=== PATIENT | male | born 1985 | race Caucasian/White ===

== ENCOUNTER 2022-04-26 11:41 | Emergency (ER) | payer OTHER, SELFPAY ==
[2022-04-26 11:51] VITALS: BP 122/72; PULSE 92; RESP 15; TEMP 39.2; O2SAT 96; BMI 28.8
[2022-04-26] MEDS: ACETAMINOPHEN 325 MG TABLET 975 MG PO (11:55)
[2022-04-26 12:24] LABS: COVID19 -Nasal RAPID POSITIVE (Negative)
--- NOTE | 2022-04-26 13:36 | ED.URI ---
HPI - URI/Sore Throat <ДМИТРИЙ Dumont Last Filed: 04/26/22 19:38> General Chief Complaint: Upper Respiratory Symptoms Stated Complaint: Cough, Sore throat, body aches, fever Time Seen by Provider: 04/26/22 13:30 Source: patient Mode of arrival: Ambulatory History of Present Illness HPI Narrative: Patient is a 36-year-old male who presents to the emergency department for an evaluation of cough, sore throat, fever, and body aches. Patient explains he has been experiencing the symptoms for the past 2 days. He denies any known recent sick contacts. Does not report any chronic medical conditions. He denies chills, shortness of breath, chest pain, nausea, vomiting, diarrhea, constipation, abdominal pain, dysuria, hematuria, earache, rash, or any other concerning symptoms. No further concerns were voiced at this time. Related Data Allergies Allergy/AdvReac Type Severity Reaction Status Date / Time No Known Drug Allergies Allergy Verified 04/26/22 11:51 Review of Systems <ДМИТРИЙ Dumont Last Filed: 04/26/22 19:38> Constitutional Constitutional: Reports body ache(s), Denies chills, Denies fatigue, Reports fever(s), Denies frequent falls, Denies lethargy and Denies weakness ENT Ears, Nose, Mouth, and Throat: Denies change in voice, Denies dizziness, Denies neck pain, Reports sore throat and Denies throat swelling Cardiovascular Cardiovascular: Denies chest pain, Denies irregular heart rhythm, Denies lightheadedness, Denies palpitations, Denies dyspnea, Denies dyspnea on exertion and Denies orthopnea Respiratory Respiratory: Denies chest congestion, Reports cough, Denies dyspnea and Denies dyspnea on exertion Gastrointestinal Gastrointestinal: Denies abdominal pain, Denies change in bowel habits, Denies diarrhea, Denies nausea and Denies vomiting Genitourinary Genitourinary: Denies hematuria, Denies flank pain, Denies urinary incontinence and Denies urinary urgency Musculoskeletal Musculoskeletal: Denies neck pain Neurologic Neurologic: Denies dizziness, Denies frequent falls and Denies weakness Endocrine Endocrine: Denies fatigue and Denies palpitations Allergic/Immunologic Allergic/Immunologic: Denies throat swelling Patient History <ДМИТРИЙ Dumont Last Filed: 04/26/22 19:38> Social History Smoking Status: Unknown if ever smoked Smoking Status: Unknown if ever smoked alcohol intake frequency: holidays/special occasions only Substance Use Type: does not use Exam <Camden Eli PA-C - Last Filed: 04/26/22 19:38> Narrative Exam Narrative: GENERAL: 36 year old patient appears stated age. Well-developed patient, in no acute distress. HEAD: Atraumatic. Normocephalic. EYES: Pupils equal round and reactive. Extraocular motions intact. No scleral icterus. No injection or drainage. ENT: Nose without bleeding, purulent drainage. Throat without erythema, tonsillar hypertrophy or exudate. Airway patent. NECK: Trachea midline. Non tender CARDIOVASCULAR: Regular rate and rhythm without murmurs, gallops, or rubs. RESPIRATORY: Clear to auscultation. Breath sounds equal bilaterally. No wheezes, rales, or rhonchi. Occasional cough on exam. GASTROINTESTINAL: Abdomen soft, non-tender, nondistended. EXTREMITIES: No edema or joint tenderness. BACK: Nontender without deformity or crepitance. No flank tenderness. NEURO: AOx3. SKIN: No rash or erythema of visible areas Initial Vital Signs Initial Vital Signs: Vital Signs Temperature 102.6 F H 04/26/22 11:51 Pulse Rate 92 H 04/26/22 11:51 Respiratory Rate 15 04/26/22 11:51 Blood Pressure 122/72 04/26/22 11:51 Pulse Oximetry 96 04/26/22 11:51 Oxygen Delivery Method 04/26/22 11:51 <Rosa Maria Carlos DO - Last Filed: 04/27/22 07:25> Initial Vital Signs Initial Vital Signs: Vital Signs Temperature 102.6 F H 04/26/22 11:51 Pulse Rate 92 H 04/26/22 11:51 Respiratory Rate 15 04/26/22 11:51 Blood Pressure 122/72 04/26/22 11:51 Pulse Oximetry 96 04/26/22 11:51 Oxygen Delivery Method 04/26/22 11:51 Course <Camden Eli PA-C - Last Filed: 04/26/22 19:38> Course Course Narrative: 975 mg of Tylenol administered. COVID swab and rapid strep ordered. COVID returned positive. Orders Ordered: Discontinued Medications Acetaminophen (Acetaminophen 325 Mg Tablet) 975 mg PO NOW ONE Stop: 04/26/22 11:54 Last Admin: 04/26/22 11:55 Dose: 975 mg Documented By: DEREK Vital Signs Vital signs: Vital Signs - 8 hr 04/26/22 11:51 04/26/22 13:39 04/26/22 13:39 Temperature 102.6 F H 99.7 F H 99.7 F H Pulse Rate 92 H 76 Respiratory Rate 15 18 Blood Pressure 122/72 106/57 L Pulse Oximetry 96 96 Oxygen Delivery Method Room Air Room Air <Rosa Maria Carlos DO - Last Filed: 04/27/22 07:25> Orders Ordered: Discontinued Medications Acetaminophen (Acetaminophen 325 Mg Tablet) 975 mg PO NOW ONE Stop: 04/26/22 11:54 Last Admin: 04/26/22 11:55 Dose: 975 mg Documented By: DEREK Vital Signs Vital signs: Vital Signs - 8 hr 04/26/22 11:51 04/26/22 13:39 04/26/22 13:39 Temperature 102.6 F H 99.7 F H 99.7 F H Pulse Rate 92 H 76 Respiratory Rate 15 18 Blood Pressure 122/72 106/57 L Pulse Oximetry 96 96 Oxygen Delivery Method Room Air Room Air MDM - URI/Sore Throat <Camden Eli PA-C - Last Filed: 04/26/22 19:38> Lab Data Labs: Lab Results 04/26/22 Range/Units 11:51 SARS-CoV-2 (PCR) Positive H (Negative) Point of Care Testing Rapid Strep A Negative MDM Narrative Medical decision making narrative: Differential diagnosis to consider but not limited to viral upper respiratory infection versus COVID-19 versus influenza. COVID swab obtained in the emergency department today did result positive for COVID-19. I recommended that the patient continue using [id number] remedies to help alleviate his symptoms. Patient expresses understanding and agrees to plan. Strict return precautions were discussed prior to discharge. <Rosa Maria Carlos DO - Last Filed: 04/27/22 07:25> Lab Data Labs: Lab Results 04/26/22 Range/Units 11:51 SARS-CoV-2 (PCR) Positive H (Negative) Point of Care Testing Rapid Strep A Negative Discharge Plan Departure Patient Disposition: Home Clinical Impression: COVID-19, Upper respiratory infection Instructions: DI for COVID-19 (Suspected or Confirmed ) Activity Restrictions/Additional Instructions: *You have been diagnosed with COVID-19, upper respiratory infection *What to do: *Please continue to take your regular medications as directed. [ ] New medication prescriptions sent to your pharmacy: [ ] [ ] New medication written as a paper prescription [X] No new medications given You were evaluated in the emergency department today for cough, sore throat, fever, body aches. COVID swab obtained in the emergency department today did result positive for COVID-19. Please ensure that your using [id number]-[id number] remedies to help alleviate her symptoms. Tylenol and ibuprofen can be used for fever management, Robitussin for cough, and warm saltwater gargles to help alleviate throat pain. Ensure that your staying well hydrated throughout the day, Pedialyte and watered down Gatorade or great ways to keep electrolyte levels up. Please continue to quarantine for the next 3 days and ensure that your wearing a mask if you are out in public for the 5 days after quarantine period ends. Please follow-up with primary care for further evaluation and management. Please do not hesitate to return to the emergency department if you experience worsening fever, difficulty breathing, throat swelling, or any other concerning symptoms. *Please follow up with your primary care provider in 2-3 days, call for an appointment. Let them know you were seen in the Emergency Department and that we ask that you be seen in follow up. We will electronically transmit a record of today's note if your PCP is in our system *If you do not have a primary care provider please contact the [facility] Resource line at [phone]. They will ask some questions about your medical history and help get you set up with a doctor in the community. *Return to Emergency Department if you should have any new, worsening or concerning symptoms, such as fever greater than 101 F, shaking chills, worsening pain, persistent vomiting or other bothersome symptoms. Visit Report Forms: Patient Portal/API <Rosa Maria Carlos DO - Last Filed: 04/27/22 07:25> [facility] ED Attending Imani Attestation: I was immediately available in the department for consultation. Documentation has been reviewed. I agree with assessment and plan.
[2022-04-26 13:39] VITALS: BP 106/57; PULSE 76; RESP 18; TEMP 37.6; O2SAT 96
== END 2022-04-26 13:43 | disposition home or self-care (01) ==
PROVIDERS: Emergency Medicine; Emergency Provider Physician Assistant
DX: U07.1 COVID-19 (principal)
CPT/HCPCS: 87635; 87880; 99282; 99283; C9803

== ENCOUNTER 2022-08-28 06:50 | Emergency (ER) | payer OTHER, SELFPAY ==
[2022-08-28] VITALS (20 sets, daily range): BP systolic 114–152; BP diastolic 58–77; PULSE 54–72; RESP 16–20; TEMP 37.1; O2SAT 93–98; BMI 28.8
--- NOTE | 2022-08-28 07:56 | DI.RAD.S_ITS ---
PROCEDURE: XR CHEST 1V INDICATIONS: chest pain TECHNIQUE: One view of the chest was acquired. COMPARISON: None. FINDINGS: Surgical changes and devices: None. Lungs and pleura: Lungs are clear. No pleural effusions or pneumothorax. Mediastinum: Mediastinal contours appear normal. Heart size is normal. Bones and chest wall: No suspicious bony lesions. Overlying soft tissues appear unremarkable. IMPRESSION: No acute cardiopulmonary pathology. Dictated by: Rey Norman M.D. on 08/28/2022 at 8:29 Approved by: Rey Norman M.D. on 08/28/2022 at 8:29
[2022-08-28 08:20] LABS: Add Manual Diff / Slide Review NO; Basophils Absolute Auto 0 /uL (0-100); Basophils Percent Auto 0.7 % (0-2); Eosinophils Absolute Auto 100 /uL (0-450); Eosinophils Percent Auto 0.9 % (2-4); Hematocrit 44.3 % (41-53); Hemoglobin 15.5 g/dL (13.5-17.5); Lymphocytes Absolute Auto 1700 /uL (1100-4500); Mean Corpuscular Volume 82.8 fL (80-100); Monocytes Absolute Auto 400 /uL (0-900); Monocytes Percent Auto 6.6 % (3-14); Neutrophils Absolute Auto 3900 /uL (1500-7000); Neutrophils Percent Auto 63.8 % (50-75); Platelet Count 207 X10^3/uL (150-400); Red Blood Cell Count 5.35 X10^6/uL (4.5-5.9); Red Cell Distribution Width 13.6 % (11.6-14.8); White Blood Cell Count 6.1 X10^3/uL (4.5-11.0)
--- NOTE | 2022-08-28 08:23 | ED_ITS ---
HPI - Fall General Chief Complaint: Fall Stated Complaint: hit his head and not sure if he blacked out Time Seen by Provider: 08/28/22 07:57 Source: patient Mode of arrival: Ambulatory Limitations: no limitations History of Present Illness HPI Narrative: This is a 36-year-old male who takes sertraline, prazosin and Ambien with a history of C6-C7 diskectomy and fusion. Patient states this morning he got out of bed he actually woke up before his alarm went off laid in bed for a period of time and then got while he was shaving he states he either fell or had a syncopal episode. Does not recall any prodrome of symptoms. Patient states that he woke up on the floor he is not sure exactly how long he was out but states his girlfriend heard some banging at about 5 minutes later he called out for assistance. Patient states he is passed out twice before once 20 years ago when he had pneumonia and once while he was on trazodone. He states both those times he had a head presley and had symptoms that he was going to pass out. He states afterwards he felt a little weak generally has little bit of a headache where he felt that he hit his head and has some elbow pain. He is describes this headache as mild he defers anything for pain. Denies any preceding headache, no chest pain, no shortness of breath, no nausea or vomiting, no abdominal, back or flank pain. Patient denies any acute vision changes no is sues with gait or weakness in his extremities, he is had some numbness in his legs with some lower back pain and sciatica. He denies any incontinence. He has not had any recent illnesses. He states he felt fine last night as well as this morning when he got up. Patient does use nicotine he dips. , he had a couple beers on Saturday night the 24 of August and states he drinks once weekly. He denies any recreational drugs or illicit. States his bio dad is healthy but does not know much about his dad side of the family. Mom has had cancer x3, he has siblings who are healthy. Multiple family members and extended family with cancer. Related Data Allergies Allergy/AdvReac Type Severity Reaction Status Date / Time No Known Drug Allergies Allergy Verified 04/26/22 11:51 Review of Systems Review of Systems ROS Unobtainable: All systems reviewed & are unremarkable except as noted in HPI and below Patient History Social History Smoking Status: Unknown if ever smoked Smoking Status: Unknown if ever smoked alcohol intake frequency: holidays/special occasions only Substance Use Type: does not use Exam Narrative Exam Narrative: GEN: well nourished, well appearing male, alert and oriented x 3, patient appears to be in mild distress. HEENT: Atraumatic, pupils are equal round reactive to light, extraocular movements are intact, nares are clear, TMs are clear with no fluid, there is no conjunctival pallor. Throat is clear without any exudates, erythema, tonsillar enlargement or uvular deviation HEART: Regular rate and rhythm without murmur, clicks, rubs. No carotid bruits, pulses are equal in upper and lower extremities LUNGS:Lungs clear to auscultation, no wheezes, rales, crackles, chest moves symmetrically ABD:bowel sounds normal, soft, non-tender, no guarding, rebound, rigidity, no masses noted, no hepatosplenomegaly :No CVA tenderness BACK: No cervical, thoracic or lumbar vertebral tenderness, normal range of motion. MSCL: Non-tender, no muscle atrophy, muscles strength 5/5 upper and lower extremities, full range of motion, normal gait NEURO:CN 2-12 intact, sensation normal, finger nose finger test normal, heel ibanez test normal, normal speech. SKIN: No rash, erythema or ecchymosis. Initial Vital Signs Initial Vital Signs: Vital Signs Pulse Rate 64 08/28/22 07:27 Pulse Oximetry 98 08/28/22 07:27 Scores GCS Vivian coma scale eye opening: Spontaneous Vivian coma scale verbal response: Orientated Vivian coma scale motor response: Obey commands Vivian coma scale total score: 15 Course Orders Ordered: ED Orders 08/28/22 07:52 Complete Blood Count AUTO DIFF Stat Comprehensive Metabolic Panel Stat Lipase Stat Magnesium Stat Troponin & CK Cardiac Panel Stat 08/28/22 07:56 XR chest 1V Stat EKG-12 Lead Stat 08/28/22 09:52 Trop I [Troponin I] Stat Vital Signs Vital signs: Vital Signs - 8 hr 08/28/22 07:30 Temperature 98.7 F Pulse Rate 64 Respiratory Rate 18 Blood Pressure 125/59 L Pulse Oximetry 96 Oxygen Delivery Method Room Air MDM - Fall Lab Data Result diagrams: 08/28/22 07:52 08/28/22 07:52 Labs: Lab Results 08/28/22 08/28/22 08/28/22 Range/Units 07:52 07:52 09:52 WBC 6.1 (4.5-11.0) X10^3/uL RBC 5.35 (4.5-5.9) X10^6/uL Hgb 15.5 (13.5-17.5) g/dL Hct 44.3 (41-53) % MCV 82.8 (80-100) fL MCH 29.0 (26-34) PG MCHC 35.0 (30-36) % RDW 13.6 (11.6-14.8) % Plt Count 207 (150-400) X10^3/uL Neut % (Auto) 63.8 (50-75) % Lymph % (Auto) 28.0 (25-40) % [facility] % (Auto) 6.6 (3-14) % Eos % (Auto) 0.9 L (2-4) % Baso % (Auto) 0.7 (0-2) % Neut # (Auto) 3900 (4988-4121) /uL Lymph # (Auto) 1700 (1573-0523) /uL [facility] # (Auto) 400 (0-900) /uL Eos # (Auto) 100 (0-450) /uL Baso # (Auto) 0 (0-100) /uL Sodium 140 (137-145) mmol/L Potassium 3.8 (3.4-5.1) mmol/L Chloride 103 (98-107) mmol/L Carbon Dioxide 25 (22-32) mmol/L BUN 22 H (9-20) mg/dL Creatinine 1.03 (0.66-1.25) mg/dL Estimated GFR > 60 (>60) mL/min BUN/Creatinine Ratio 21.4 (6-22) Glucose 143 H (70-100) mg/dL Calcium 9.2 (8.4-10.2) mg/dL Magnesium 1.8 (1.6-2.3) mg/dL Total Bilirubin 1.3 (0.2-1.3) mg/dL AST 35 (17-59) IU/L ALT 32 (<50) IU/L Alkaline Phosphatase 63 (38-126) U/L Total Creatine Kinase 119 (55-170) U/L CK-MB (CK-2) 0.93 (<2.37) ng/mL CK-MB (CK-2) Rel Index 0.8 L (1.5-5.0) % Troponin I < 0.012 < 0.012 (0.01-0.034) ng/mL Total Protein 8.0 (6.3-8.2) g/dL Albumin 4.7 (3.5-5.0) g/dL Globulin 3.3 (1.7-4.1) g/dL Albumin/Globulin Ratio 1.4 (1.0-2.8) Lipase 124 (23-300) U/L Imaging Data Chest x-ray: Radiologist's Impression: [address] [address] XRay Report Signed Patient: Akbar Veronica MR#: [id number] : 1985 Acct:[id number] Age/Sex: 36 / M Date of Service: 08/28/22 Loc: ED Accession Number: [id number] ?? Procedure: XR chest 1V Ordering Provider: Kia Loving D.O. PROCEDURE:? XR CHEST 1V ? INDICATIONS:? chest pain ? TECHNIQUE:? One view of the chest was acquired.? ? COMPARISON:? None. ? FINDINGS:? ? Surgical changes and devices:? None.? ? Lungs and pleura:? Lungs are clear.? No pleural effusions or pneumothorax.? ? Mediastinum:? Mediastinal contours appear normal.? Heart size is normal.? ? Bones and chest wall:? No suspicious bony lesions.? Overlying soft tissues appear unremarkable.? ? IMPRESSION:? No acute cardiopulmonary pathology. ? ? Dictated by: Rey Norman M.D. on 08/28/2022 at 8:29 ? ? Approved by: Rey Norman M.D. on 08/28/2022 at 8:29? ECG Data Attestation: I personally reviewed and interpreted this ECG as follows: Prior ECG tracings: not available for review Interpretation: Sinus rhythm rate of 71 PA 150 QRS of [address] elevation, Q-wave tooth AVF in lateral Sinus bradycardia rate of 57 PA 166 QRS of 102 and QTC of 412. No acute ST elevation or depression patient has no dynamic changes compared to prior. MDM Narrative Medical decision making narrative: This is a 36-year-old male with possible syncopal episode patient did not have any preceding symptoms. EKG does not show obvious acute changes no priors for comparison. He has had 2 prior syncopal episodes over the last 20 years. On prazosin and Ambien at nighttime which could have contributed and had just recently gotten up and was shaving. Patient is not on any other medications th at would likely cause his symptoms. His initial lab work is overall reassuring with negative chest x-ray troponin was repeated as well as EKG. Head CT deferred as patient did not have any preceding headache describes mild headache afterwards and spot his head and is not on any anticoagulation. Discharge Plan Departure Patient Disposition: Home Clinical Impression: Syncope Instructions: DI for Syncope in Adults (Fainting) Activity Restrictions/Additional Instructions: Follow-up with your physician for recheck. Make sure to regularly hydrate. You may continue your home medications as prescribed. Please return for new or recurrent symptoms, lightheadedness, passing out, new chest pain, shortness of breath, worsening headache, some vision changes, numbness, tingling or weakness, loss of bowel or bladder control or other new or concerning symptoms. Referrals: ProviderKristy [Primary Care Provider] - Visit Report Forms: Patient Portal/API
[2022-08-28 08:24] LABS: Alanine Aminotransferase 32 IU/L (<50); Albumin 4.7 g/dL (3.5-5.0); Albumin Globulin Ratio 1.4 (1.0-2.8); Alkaline Phosphatase 63 U/L (38-126); Aspartate Aminotransferase 35 IU/L (17-59); BUN Creatinine Ratio 21.4 (6-22); Bilirubin Total 1.3 mg/dL (0.2-1.3); Blood Urea Nitrogen 22 mg/dL (9-20); Calcium 9.2 mg/dL (8.4-10.2); Carbon Dioxide 25 mmol/L (22-32); Chloride 103 mmol/L (98-107); Creatine Kinase 119 U/L (55-170); Estimated Glomerular Filt Rate > 60 mL/min (>60); Globulin 3.3 g/dL (1.7-4.1); Glucose 143 mg/dL (70-100); HEMOLYSIS < 15 (0-50); Lipase 124 U/L (23-300); Magnesium 1.8 mg/dL (1.6-2.3); Potassium 3.8 mmol/L (3.4-5.1); Sodium 140 mmol/L (137-145)
[2022-08-28 08:35] LABS: Troponin I < 0.012 ng/mL (0.01-0.034)
[2022-08-28 08:39] LABS: CKMB % Relative Index 0.8 % (1.5-5.0); Creatine Kinase MB 0.93 ng/mL (<2.37)
[2022-08-28 10:44] LABS: Troponin I < 0.012 ng/mL (0.01-0.034)
== END 2022-08-28 10:55 | disposition home or self-care (01) ==
PROVIDERS: Emergency Provider Emergency Medicine
DX: R55 Syncope and collapse (principal); R07.9 Chest pain, unspecified; M54.50 Low back pain, unspecified; S09.90XA Unspecified injury of head, initial encounter; W06.XXXA Fall from bed, initial encounter
CPT/HCPCS: 36415; 71045; 80053; 82550; 82553; 83690; 83735; 84484; 85025; 93005; 93010; 99283; 99284

== ENCOUNTER 2023-02-19 13:59 | Emergency (ER) | payer OTHER, SELFPAY ==
[2023-02-19 14:00] VITALS: BP 134/78; PULSE 98; RESP 15; TEMP 36.1; O2SAT 98; BMI 28.8
--- NOTE | 2023-02-19 14:03 | DI.RAD.S_ITS ---
PROCEDURE: XR FINGER LT MIN 2V INDICATIONS: injury TECHNIQUE: PA hand, 2 views of the index finger acquired. COMPARISON: None. FINDINGS: Bones: No acute fractures or dislocations. No suspicious bony lesions. Soft tissues: No suspicious soft tissue calcifications. Soft tissue edema is seen in the index finger. No radiopaque foreign body. IMPRESSION: No acute osseous abnormality. If clinical suspicion and/or symptoms persist, additional imaging with repeat plain films, or advanced imaging (e.g. CT, MRI) may be helpful for further assessment. There is no significant discrepancy when compared to the preliminary interpretation provided by the Emergency Department physician. Approved by: Von Lay M.D. on 02/19/2023 at 15:39
--- NOTE | 2023-02-19 15:18 | ED_ITS ---
HPI - Wound/Laceration General Chief Complaint: Wound/Laceration Stated Complaint: drilled a hole in finger Time Seen by Provider: 02/19/23 14:56 Source: patient Mode of arrival: Ambulatory History of Present Illness HPI narrative: Patient is a 37-year-old male who presents with left index finger injury with drill. Denies numbness tingling or weakness. Tetanus is up-to-date. No nail involvement. Related Data Allergies Allergy/AdvReac Type Severity Reaction Status Date / Time No Known Drug Allergies Allergy Verified 02/19/23 14:04 Review of Systems Review of Systems ROS Unobtainable: All systems reviewed & are unremarkable except as noted in HPI and below Patient History Social History Smoking Status: Unknown if ever smoked Smoking Status: Unknown if ever smoked alcohol intake frequency: holidays/special occasions only Substance Use Type: does not use Exam Initial Vital Signs Initial Vital Signs: Vital Signs Temperature 96.9 F L 02/19/23 14:00 Pulse Rate 98 H 02/19/23 14:00 Respiratory Rate 15 02/19/23 14:00 Blood Pressure 134/78 02/19/23 14:00 Pulse Oximetry 98 02/19/23 14:00 Oxygen Delivery Method Room Air 02/19/23 14:00 GENERAL: Alert pleasant well-appearing 29-year-old male CARDIOVASCULAR: peripheral pulses in tact, cap refill <2 sec RESPIRATORY: No respiratory distress, speaks in full sentences without difficulty EXTREMITIES: Normal range of motion, no clubbing or edema. Neurovascularly intact NEUROLOGICAL: Cranial nerves II through XII grossly intact. Normal gait and speech. SKIN: Right index finger palmar side small superficial wound does not go through to other side. Bleeding is well-controlled Course Orders Ordered: ED Orders 02/19/23 14:03 XR finger LT min 2V Stat Vital Signs Vital signs: Vital Signs - 8 hr 02/19/23 14:00 Temperature 96.9 F L Pulse Rate 98 H Respiratory Rate 15 Blood Pressure 134/78 Pulse Oximetry 98 Oxygen Delivery Method Room Air MDM - Wound/Laceration Imaging Data Extremity x-ray #1: My Impression: no fracture Radiologist's Impression: PROCEDURE:? XR FINGER LT MIN 2V ? INDICATIONS:? injury ? TECHNIQUE:? PA hand, 2 views of the index finger acquired.? ? COMPARISON:? None. ? FINDINGS:? ? Bones:? No acute fractures or dislocations.? No suspicious bony lesions.? ? Soft tissues:? No suspicious soft tissue calcifications.? Soft tissue edema is seen in the index finger.? No radiopaque foreign body. ? IMPRESSION:? No acute osseous abnormality.? If clinical suspicion and/or symptoms persist, additional imaging with repeat plain films, or advanced imaging (e.g. CT, MRI) may be helpful for further assessment. ? There is no significant discrepancy when compared to the preliminary interpretation provided by the Emergency Department physician. ? Approved by: Von Lay M.D. on 02/19/2023 at 15:39? MDM Narrative Medical decision making narrative: Patient 37-year-old male tetanus up-to-date presents today with left index finger injury with drill bit. It does not go all the way through bleeding controlled no need for repair. X-ray is negative supportive care only. Discharge Plan Departure Patient Disposition: Home Clinical Impression: Avulsion of skin Instructions: DI for Puncture Wound Activity Restrictions/Additional Instructions: *You have been diagnosed with avulsion laceration *What to do: At this time no need for sutures. It does not appear that you got the bone. Keep clean and dry with soap and water. Apply antibiotic ointment 1- 2 times *Continue to take medications as directed Tylenol or Motrin as directed if needed for pain *Follow up with your primary care provider in 2-3 days or call [phone] *Return to ER if you should have increasing redness swelling numbness tingling or any new, worsening or concerning symptoms Referrals: ProviderKristy [Primary Care Provider] - Stand Alone Forms: Patient Portal/API
== END 2023-02-19 15:36 | disposition home or self-care (01) ==
PROVIDERS: Emergency Provider Emergency Medicine
DX: S61.331A Puncture wound without foreign body of left index finger with damage to nail, initial encounter (principal); W26.9XXA Contact with unspecified sharp object(s), initial encounter
CPT/HCPCS: 73140; 99283

== ENCOUNTER → 2023-12-27 15:38 | Outpatient (CLI) | payer OTHER, SELFPAY ==
--- NOTE | 2023-12-27 | DI.MRI.S_ITS ---
PROCEDURE: MR KNEE LT WO CON INDICATIONS: LEFT KNEE PAIN TECHNIQUE: Noncontrast sagittal PD fast spin echo and T2 fast spin echo with fat saturation, sagittal 3-D FLASH with fat saturation; coronal T1 spin echo and PD fast spin echo with fat saturation, and axial PD fast spin echo with fat saturation through the knee. COMPARISON: None. FINDINGS: Image quality: Excellent. Menisci: The medial and lateral menisci demonstrate normal morphology and internal signal. The meniscal root ligaments appear intact. Cruciate ligaments: The anterior and posterior cruciate ligaments appear intact. Medial structures: The medial collateral ligament appears thickened with surrounding soft tissue edema. Visualized portions of the pes anserinus tendons appear normal. No abnormal bursal fluid. Lateral structures: The lateral collateral ligament, long and short heads of the biceps femoris tendon appear intact. The popliteus tendon appears normal. Iliotibial band appears normal. Anterior structures: Thickened distal quadriceps tendon at its superior patellar insertion is seen. The patellar tendon is intact. Patellar alignment is normal. 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 No discrete fracture line. No edema in the infrapatellar fat pad. Bones and cartilage: No other area of marrow signal abnormality. No fracture or dislocation. The cartilage of the medial and lateral femorotibial compartments, as well as the patellofemoral compartment, appears normal in thickness. Joint space: There is moderate knee joint fluid. No Vazquez's cyst. Normal appearing synovial plicae are incidentally noted. IMPRESSION: 1. 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 No fracture or dislocation. Moderate joint effusion, no gross loose bodies. 2. Low to moderate grade MCL sprain/partial-thickness tear. 3. No evidence of focal meniscal tear. 4. The cruciate ligaments are intact. Dictated by: Rey Norman M.D. on 12/27/2023 at 16:59 Approved by: Rey Norman M.D. on 12/27/2023 at 17:02
== END ==
DX: M94.262 Chondromalacia, left knee (principal); M25.462 Effusion, left knee; S83.412A Sprain of medial collateral ligament of left knee, initial encounter; M25.562 Pain in left knee
CPT/HCPCS: 73721